=== PATIENT | male | born 1960 | race Caucasian/White ===

== ENCOUNTER 2017-04-19 09:07 | Inpatient (IN) | payer OTHER ==
[2017-04-06 15:16] VITALS: BMI 33.0
--- NOTE | 2017-04-06 15:48 | PAT Medication Instructions ---
Service Date Apr 06, 2017. Current Home Medication List Budesonide/Formoterol Fumarate (Symbicort 160/4.5 Inhaler), 2 PUFFS INH BID Escitalopram Oxalate (Lexapro), 5 MG PO HS Esomeprazole Magnesium (Nexium), 20 MG PO HS Gabapentin (Neurontin), 300 MG PO TID Glatiramer Acetate (Copaxone), 1 DOSE INJ 3XWK Ipratropium-Albuterol (Duoneb), 1 TREATMENT INH Q4H Levocetirizine Dihydrochloride (Xyzal), 1 TAB PO HS Ropinirole (Requip), 3 MG PO HS Tamsulosin HCl (Tamsulosin HCl), 2 CAP PO HS Tramadol (Ultram), 50-100 MG PO Q8H PRN for Pain Zolpidem Tartrate (Ambien), 10 MG PO HS PRN for Insomnia Medication Instructions For Your Scheduled Surgery - Continue as directed: Glatiramer Acetate (Copaxone), 1 DOSE INJ 3XWK (*bring from home*) - Take the following medications the morning of surgery with a sip of water: Gabapentin (Neurontin), 300 MG PO TID Budesonide/Formoterol Fumarate (Symbicort 160/4.5 Inhaler), 2 PUFFS INH BID Tramadol (Ultram), 50-100 MG PO Q8H PRN for Pain (may take if needed up to 4 hours prior to surgery) Ipratropium-Albuterol (Duoneb), 1 TREATMENT INH Q4H - Take the following medications as scheduled the evening before surgery: Gabapentin (Neurontin), 300 MG PO TID Zolpidem Tartrate (Ambien), 10 MG PO HS PRN for Insomnia Levocetirizine Dihydrochloride (Xyzal), 1 TAB PO HS Escitalopram Oxalate (Lexapro), 5 MG PO HS Esomeprazole Magnesium (Nexium), 20 MG PO HS Budesonide/Formoterol Fumarate (Symbicort 160/4.5 Inhaler), 2 PUFFS INH BID Tramadol (Ultram), 50-100 MG PO Q8H PRN for Pain Ipratropium-Albuterol (Duoneb), 1 TREATMENT INH Q4H Tamsulosin HCl (Tamsulosin HCl), 2 CAP PO HS - Do not take the following medications the evening before surgery: Ropinirole (Requip), 3 MG PO HS If you have any questions please call us at [phone] or [phone] or [phone]
[2017-04-06 16:46] LABS: BUN/CREATININE RATIO 11.5 (10-20); CALCIUM 9.3 mg/dl (8.5-10.1); CREATININE 1.1 mg/dl (0.60-1.40); POTASSIUM 3.8 mmol/L (3.5-5.1)
[2017-04-06 16:54] LABS: BASO % 0.3 %; BASO ABS # 0.02 K/uL (0-0.2); COMPLETE YES; EOS % 1.4 %; HEMATOCRIT 42.1 % (42-52); IG% 0.3 %; LYMPH ABS # 1.95 K/uL (1.2-3.4); MEAN CELL VOLUME 97.9 fL (80-100); MEAN CORPUSCULAR HEMOGLOBIN 33.5 pg (25-34); MEAN CORPUSCULAR HGB CONC 34.2 g/dl (32-36); MEAN PLATELET VOLUME 10.4 fL (7.4-10.4); MONO % 9.8 %; NEUT % 63.2 %; PLATELET COUNT 292 K/uL (130-400); WHITE BLOOD COUNT 7.79 K/uL (4.8-10.8)
[~2017-04-19] VITALS: Ht 167.6 cm; Wt 89.5 kg
[2017-04-19] VITALS (11 sets, daily range): BP systolic 93–176; BP diastolic 60–112; PULSE 86–105; TEMP 36.5–37.5; O2SAT 90–99; Ht 167.6 cm; Wt 89.5 kg
[~2017-04-19 09:07] MED LIST: ESCI1TAB6 PO; ESOM20CA PO; FENTANYL CITRATE INJ 50 MCG/1 ML 2 ML VIAL ONE; FLM4 PO; GABA-113 PO; GLAT1INJ INJ; IPRASOL4 INH; LACTATED RINGER'S 1000ML 1,000 ML IV SCH; LEVO-371 PO; LIDOCAINE HCL 2% 2 ML VIAL (20MG/ML) ONE; MIDAZOLAM HCL 1 MG/ML 2ML VIAL ONE; PROPOFOL IV EMULSION 10 MG/ML 20 ML VIAL IV ONE; ROCURONIUM BROMIDE 10 MG/ML 5 ML VIAL ONE; ROPI3TAB PO; SYMIN160 INH; TRAM-10 PO; ZOLP10TA PO
[2017-04-19] MEDS ORDERED: CHOL1000 PO (09:35)
[2017-04-19] MEDS ORDERED: HYDR-4079 PO (09:41)
[2017-04-19] MEDS ORDERED: SODIUM CHLORIDE 0.9% PF 50 ML VIAL ONE (09:54)
[2017-04-19] MEDS ORDERED: BUPIVACAINE LIPOSOME 1/3% 266 MG/20 ML VIAL INFIL ONE (09:54)
--- NOTE | 2017-04-19 10:00 | History & Physical Bridge Note ---
H&P Re-Evaluation Bridge Note: I have examined the patient, reviewed the History & Physical and in the interval since the performance of the History & Physical I have noted the following changes of clinical significance: No changes noted
[2017-04-19] MEDS ORDERED: FENTANYL CITRATE INJ 50 MCG/1 ML 2 ML VIAL ONE ×3 (10:39→14:59)
[2017-04-19] MEDS ORDERED: KETAMINE HCL INJ 50 MG/ML 10 ML VIAL ONE (10:46)
[2017-04-19] MEDS ORDERED: HYDROmorphone INJ 2 MG/ML SYR/VIAL IV PRN (11:00)
[2017-04-19] MEDS ORDERED: ONDANSETRON INJ 2 MG/ML 2 ML VIAL IV PRN ×2 (11:00→16:15)
[2017-04-19] MEDS ORDERED: EpHEDrine SULFATE INJ 50 MG/ML AMP IV PRN (11:00)
[2017-04-19] MEDS ORDERED: PHENYLEPHRINE 100MCG/ML 5ML SYR IV PRN (11:00)
[2017-04-19] MEDS ORDERED: ATROPINE SULFATE 0.1 MG/ML 5ML SYR IV PRN (11:00)
[2017-04-19] MEDS ORDERED: CLINDAMYCIN PHOS 150 MG/ML 2 ML VIAL ONE (11:49)
[2017-04-19] MEDS ORDERED: ALBUMIN HUMAN 5% 12.5 GM/250 ML VIAL IV ONE (12:18)
[2017-04-19] MEDS ORDERED: PHENYLEPHRINE HCL INJ 10 MG/ML VIAL ONE ×4 (12:41→15:32)
[2017-04-19] MEDS ORDERED: ROCURONIUM BROMIDE 10 MG/ML 5 ML VIAL ONE ×2 (12:41→15:10)
[2017-04-19] MEDS ORDERED: PHENYLEPHRINE 100MCG/ML 5ML SYR ONE ×4 (12:41→14:43)
[2017-04-19] MEDS ORDERED: ESMOLOL HCL 10 MG/ML 10 ML VIAL ONE (13:10)
[2017-04-19] MEDS ORDERED: ALBUT/IPRATROP 3MG/0.5MG NEB 3 ML VIAL INH PRN (16:15)
[2017-04-19] MEDS ORDERED: MoRPHine SULFATE 2 MG/ML CARP IV PRN (16:15)
[2017-04-19] MEDS ORDERED: HYDROmorphone INJ 2 MG/ML SYR/VIAL ONE (16:40)
--- NOTE | 2017-04-19 16:43 | DIAGNOSTIC IMAGING REPORT ---
CHEST ONE VIEW PORTABLE CLINICAL HISTORY: LLL postoperative evaluation COMPARISON STUDY: 01/20/2017 FINDINGS: Interval left-sided thoracotomy. Consolidative change left base. Left-sided chest tube. No significant residual pneumothorax. Central catheter and left subclavian vein. Potential small pneumomediastinum. Atelectasis right base. Trace amount of subcutaneous emphysematous change. IMPRESSION: 1. Postoperative changes left hemithorax. 2. Left sided chest tube in good position. 3. Bibasilar atelectasis. 4. Small pneumomediastinum with mild subcutaneous emphysematous change. The above report was generated using voice recognition software. It may contain grammatical, syntax or spelling errors. Electronically signed by: Konrad Luevano M.D. 04/19/2017 4:41 PM Dictated Date/Time: 04/19/2017 4:39 PM
[2017-04-19] MEDS ORDERED: HYDROmorphone INJ 1 MG/ML SYR ONE (17:09)
--- NOTE | 2017-04-19 18:04 | Anesthesiology Progress Note ---
Anesthesia Post Op Note Date & Time Apr 19, 2017 at 18:04 Vital Signs Vital Signs Past 12 Hours Date Time Temp Pulse Resp B/P (MAP) Pulse Ox O2 Delivery O2 Flow Rate FiO2 04/19/17 17:44 36.5 04/19/17 17:41 123/78 04/19/17 17:38 98 14 98 04/19/17 17:38 98 14 04/19/17 17:36 115/81 04/19/17 17:33 92 12 04/19/17 17:33 92 12 99 04/19/17 17:31 119/75 04/19/17 17:28 99 19 98 04/19/17 17:28 99 19 04/19/17 17:26 122/71 04/19/17 17:23 98 20 04/19/17 17:23 98 20 96 04/19/17 17:22 98 18 96 04/19/17 17:22 98 18 04/19/17 17:21 126/75 04/19/17 17:17 101 15 95 04/19/17 17:17 100 15 04/19/17 17:16 118/73 04/19/17 17:12 101 22 04/19/17 17:12 102 22 95 04/19/17 17:11 106/71 04/19/17 17:07 101 16 95 04/19/17 17:07 101 16 04/19/17 17:06 112/72 04/19/17 17:02 96 19 04/19/17 17:02 96 19 95 04/19/17 17:01 104/63 04/19/17 17:00 99 19 95 04/19/17 17:00 99 19 04/19/17 16:56 115/70 04/19/17 16:55 98 20 04/19/17 16:55 99 20 96 04/19/17 16:51 120/65 04/19/17 16:50 101 20 96 04/19/17 16:50 101 20 04/19/17 16:47 114/73 04/19/17 16:45 102 21 94 04/19/17 16:45 102 21 04/19/17 16:42 88/61 04/19/17 16:40 100 19 04/19/17 16:40 99 19 95 04/19/17 16:37 97/60 04/19/17 16:35 98 19 97 04/19/17 16:35 99 19 04/19/17 16:30 95 23 98 04/19/17 16:30 95 23 04/19/17 16:26 122/77 04/19/17 16:25 96 21 04/19/17 16:25 36.1 96 18 122/77 100 Mask 10 04/19/17 16:25 96 21 100 04/19/17 10:35 86 16 99 Mask 10.0 04/19/17 09:43 36.8 92 20 176/112 98 Room Air Notes Mental Status: alert / awake / arousable, participated in evaluation Pt Amnestic to Procedure: Yes Nausea / Vomiting: adequately controlled Pain: adequately controlled Airway Patency, RR, SpO2: stable & adequate BP & HR: stable & adequate Hydration State: stable & adequate Anesthetic Complications: no major complications apparent
[2017-04-19] MEDS: D5W AND 1/2NSS 1,000 ML IV SCH (18:09)
[2017-04-19] MEDS: ACETAMINOPHEN IV 1,000 MG in EMPTY BAG 0 ML IV SCH (20:09)
[2017-04-19] MEDS: KETOROLAC TROMETHAMINE 30 MG/ML VIAL IV. SCH (20:09)
[2017-04-19] MEDS ORDERED: NURSING VERBAL MED ORDER ONE (20:15)
[2017-04-19] MEDS: MoRPHine SULFATE 2 MG/ML CARP IV PRN (20:50)
[2017-04-19] MEDS: NICOTINE 21 MG/24 HR TDSY EXT SCH (20:52)
[2017-04-19] MEDS: CLINDAMYCIN IV 900 MG in DEXTROSE 5% 100ML 100 ML IV SCH (20:53)
[2017-04-19] MEDS: ROPINIROLE HCL 1 MG TAB PO SCH (20:55)
[2017-04-19] MEDS: GABAPENTIN 300 MG CAP PO SCH (20:55)
[2017-04-19] MEDS: DOCUSATE SODIUM 100 MG CAP PO SCH (20:56)
[2017-04-19] MEDS: ESCITALOPRAM OXALATE 10 MG TAB PO SCH (20:56)
[2017-04-19] MEDS: TAMSULOSIN HCL 0.4 MG CAP PO SCH (20:56)
[2017-04-19] MEDS: METOCLOPRAMIDE HCL INJ 5 MG/ML 2 ML VIAL IV. SCH (21:44)
[2017-04-19] MEDS: BUDESONIDE/FORMOTEROL FUMARATE 160/4.5 60 PUFFS/INHALER INH SCH (22:27)
--- NOTE | 2017-04-19 23:32 | OPERATIVE REPORT ---
DATE OF OPERATION: 04/19/2017 PREOPERATIVE DIAGNOSIS: Non-small cell lung carcinoma, left lower lobe. POSTOPERATIVE DIAGNOSIS: Same. PROCEDURE: Thoracoscopic left lower lobectomy with mediastinal lymphadenectomy. SURGEON: Dr. Clark. HOSPITAL LABORATORY TECHNICIAN: ZOEY Marrufo. ANESTHESIA: General anesthesia, endotracheal intubation with a double lumen tube. SPECIFICS OF PROCEDURE AND FINDINGS: This a very nice 57-year-old male, who continues to smoke cigarettes, found to have a non-small cell lung carcinoma of the left lower lobe. He was worked up by Dr. Fabrice Gregg from [place], lung specialist, and felt to be a candidate for a resection. On 04/19/2017, the patient was brought to the operating room at [facility] and underwent an uncomplicated thoracoscopic left lower lobectomy with a mediastinal lymphadenectomy. He lost very little blood. He is extubated in the room. He tolerated it quite well. PROCEDURE: The patient brought to the operating room, laid in supine position. General anesthesia induced and endotracheal intubation was performed. This was done with a double lumen tube. Arterial line was also placed in his left radial artery. It is important to note this patient was a very difficult IV access. We put an IV in his right distal saphenous and then two smaller upper extremity IVs.. The patient was then placed in the right lateral decubitus position, his left chest was prepped and draped in the usual sterile fashion. Appropriate timeout was called and prophylactic antibiotics were given. A 5-mm port was placed, 1 interspace and a bit anterior to the tip of the scapula and carbon dioxide insufflated. The 5-mm scope was placed and it could be seen that the lung had been isolated quite nicely. However, there were adhesions of the superior segment of the lower lobe to the chest wall. This did not appear to be the area of his cancer on CT scan. It appeared to me the patient had atelectasis with post-obstructive pneumonitis and I went ahead and placed another port at about the 7th interspace anteriorly and then a working channel about 3 cm in length at the fourth interspace, anterior to the latissimus dorsi muscle. The Harmonic scalpel was used to take down the adhesions. We did get into some bleeding, but the Aquamantys cycle consultant was used to control this nicely. After taking these down, I then some of the fissure, but it was very difficult. The inferior pulmonary ligament was taken down. The level 9 node really was not seen, but a level 8 node was sent off. I then freed up the pleura all the way up to the aortopulmonary window area and biopsied the level 10 node. I then easily dissected out the inferior pulmonary vein. After identifying the superior pulmonary vein, in particular the lingual vein, I went ahead and took the inferior pulmonary vein with an Endo-ULI stapler. On pulling this up, it could be seen that there were significant lymph nodes here. I dissected this out further and identified the bronchus. I then allowed the lung to fall back in its natural position and I the 2 fissures and then we the 2 lobes with some traction and then went down and took down the pleura over the artery. I then was able to complete the fissure anteriorly and this helped greatly. The lingual bronchus as well as the lingual artery and vein were identified. I dissected out the artery and I had to go a bit distal and fire Endo-ULI stapler. This freed it up, so I could get to the bronchus quite nicely. But I still had some issues getting this freed up and I fired the stapler across the superior segment of the lower lobe and this freed it up nicely. I then dissected out the artery and I was a bit concerned the cancer may be growing into this. We meticulously dissected this out and I was able to separate the posterior fissure with an Endo-ULI stapler. This went to a soft portion. After this, I was able to dissect out the vein and the artery and the bronchus a bit better. It could be seen that I was going to be able to fire a stapler across the main pulmonary artery and more proximal to my original arterial staple line. Care was taken to avoid compromising the flow to the lingual artery. Endo-ULI stapler was fired. This freed up the bronchus quite nicely and I took this just distal to the takeoff of the lingual bronchus. The specimen was delivered off the field in a bag to prevent any seeding. Chest was irrigated out. There was one area that was leaking from posteriorly and I fired an Endo-ULI stapler across this from the upper lobe. The lung expanded quite nicely. We really got into very little blood loss. I did dissect out a level 7 node. I saw really no significant bleeding and our blood loss was negligible. He really was not leaking much at the end of the case. A 24-Kosovan chest tube was placed in the anterior thoracoscopy port and directed towards the apex. It was sutured in place with heavy silk suture. We assessed for further leaking, really had very little. Saline was suctioned out from the chest tube. 0 Vicryl was used to close the muscle areas of all 3 ports and 4-0 Monocryl was used in running subcuticular fashion to approximate the wound edges. He tolerated it well and was extubated in the room. I attest to the content of the Intraoperative Record and any orders documented therein. Any exception s are noted below.
[2017-04-20] VITALS (11 sets, daily range): BP systolic 104–138; BP diastolic 70–82; PULSE 82–109; TEMP 36.9–37.3; O2SAT 93–97
[2017-04-20] MEDS: OXYCODONE HCL IR 5 MG TAB (IMMEDIATE RELEASE) PO PRN ×5 (00:15→19:33)
[2017-04-20] MEDS: CLINDAMYCIN IV 900 MG in DEXTROSE 5% 100ML 100 ML IV SCH (01:43)
[2017-04-20] MEDS: D5W AND 1/2NSS 1,000 ML IV SCH (01:44)
[2017-04-20] MEDS: KETOROLAC TROMETHAMINE 30 MG/ML VIAL IV. SCH ×3 (04:09→19:32)
[2017-04-20] MEDS: ACETAMINOPHEN IV 1,000 MG in EMPTY BAG 0 ML IV SCH ×3 (04:09→19:32)
[2017-04-20] MEDS: METOCLOPRAMIDE HCL INJ 5 MG/ML 2 ML VIAL IV. SCH ×2 (05:58→13:37)
[2017-04-20 06:57] LABS: BASO % 0.1 %; BASO ABS # 0.01 K/uL (0-0.2); COMPLETE YES; HEMATOCRIT 35.5 % (42-52); IG% 0.3 %; LYMPH ABS # 1.65 K/uL (1.2-3.4); MEAN CELL VOLUME 98.9 fL (80-100); MEAN CORPUSCULAR HEMOGLOBIN 31.5 pg (25-34); MEAN CORPUSCULAR HGB CONC 31.8 g/dl (32-36); MEAN PLATELET VOLUME 10.3 fL (7.4-10.4); MONO % 7.6 %; PLATELET COUNT 251 K/uL (130-400); RED BLOOD COUNT 3.59 M/uL (4.7-6.1); WHITE BLOOD COUNT 14.99 K/uL (4.8-10.8)
[2017-04-20 06:59] LABS: PROTHROMBIN TIME (PATIENT) 11.1 SECONDS (9.0-12.0)
--- NOTE | 2017-04-20 07:04 | DIAGNOSTIC IMAGING REPORT ---
CHEST ONE VIEW PORTABLE HISTORY: Postop. Left lower lobectomy. COMPARISON: Chest 04/19/2017. FINDINGS: Left-sided chest tube terminates near the left lung apex. Trace left pleural effusion and left basilar linear densities remain unchanged. Left chest wall subcutaneous emphysema persists. The heart remains mildly enlarged. Improvement in the right midlung zone atelectasis. Small amount of pneumomediastinum remains unchanged. IMPRESSION: No change in the small amount of pneumomediastinum. A left chest tube terminates near the left lung apex. Electronically signed by: Reinier Sagastume M.D. 04/20/2017 7:03 AM Dictated Date/Time: 04/20/2017 7:02 AM
[2017-04-20 07:32] LABS: BUN/CREATININE RATIO 13.1 (10-20); CALCIUM 8.2 mg/dl (8.5-10.1); POTASSIUM 3.5 mmol/L (3.5-5.1)
[2017-04-20] MEDS: ENOXAPARIN 40 MG/0.4 ML SYR SQ SCH (09:08)
[2017-04-20] MEDS: DOCUSATE SODIUM 100 MG CAP PO SCH ×2 (09:09→21:17)
[2017-04-20] MEDS: PANTOprazole SOD 40 MG TAB PO SCH (09:09)
[2017-04-20] MEDS: CHOLECALCIFEROL 1000 INTER.UNIT TAB PO SCH (09:09)
[2017-04-20] MEDS: ROPINIROLE HCL 1 MG TAB PO SCH ×3 (09:10→21:17)
[2017-04-20] MEDS: CILOSTAZOL 100 MG TAB PO SCH ×2 (09:10→21:17)
[2017-04-20] MEDS: NICOTINE 21 MG/24 HR TDSY EXT SCH (09:11)
[2017-04-20] MEDS: BUDESONIDE/FORMOTEROL FUMARATE 160/4.5 60 PUFFS/INHALER INH SCH ×2 (09:11→20:16)
[2017-04-20] MEDS: GABAPENTIN 300 MG CAP PO SCH ×3 (09:13→21:17)
--- NOTE | 2017-04-20 09:22 | SURGERY PROGRESS NOTE ---
DATE: 04/20/2017 Mr. Fonseca is seen today on 04/20/2017. He is 1 day status post thoracoscopic left lower lobectomy with mediastinal lymphadenectomy. Mr. Fonseca looks great. He is sitting up in a chair. He is on room air. He has just finished eating breakfast. Everything looked very well yesterday. I was quite happy with him from a surgical standpoint. He has had a quiet night. He is afebrile. His saturations are 96% on room air. His vital signs are stable. He has some rhonchi on the left, but he is been moving air well without wheezing. He is on bronchodilators. He has a regular rate and rhythm of his heart. Sequential compression devices are in place. His left toe is extremely tender and cyanotic. 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 He apparently embolized cholesterol crystals at that time. He has a bounding posterior tibialis pulse on the left. His lab work looks quite good. His white count is 14,990, hemoglobin is 11.3 and his platelet count is stable at 251,000. His sodium is 138, potassium 3.5, chloride 105, BUN and creatinine are 13 and 1.0 respectively. His x-ray looks quite good with no evidence of a pneumothorax. His chest tube has very little in the way of drainage. He does have a very small air leak. His lung is completely expanded. ASSESSMENT AND PLAN: Postoperative day #1 status post thoracoscopic left lower lobectomy with mediastinal lymphadenectomy. His pain control was very good. He looks very good. I am going to start Pletal on him in hopes that it will help his left hallux. In the meantime, we are going to get him up walking. I have discussed this with his family and hopefully we will be able to send him home in about 48 hours. DARIN
[2017-04-20] MEDS: MoRPHine SULFATE 2 MG/ML CARP IV PRN ×3 (12:17→22:09)
[2017-04-20] MEDS ORDERED: NURSING VERBAL MED ORDER ONE (19:30)
[2017-04-20] MEDS: ESCITALOPRAM OXALATE 10 MG TAB PO SCH (21:17)
[2017-04-20] MEDS: TAMSULOSIN HCL 0.4 MG CAP PO SCH (21:17)
[2017-04-21] MEDS: MoRPHine SULFATE 2 MG/ML CARP IV PRN ×2 (00:25→23:45)
[2017-04-21 03:01] VITALS: BP 127/78; PULSE 110; TEMP 37.1; O2SAT 92
[2017-04-21] MEDS: ACETAMINOPHEN IV 1,000 MG in EMPTY BAG 0 ML IV SCH (03:38)
[2017-04-21] MEDS: KETOROLAC TROMETHAMINE 30 MG/ML VIAL IV. SCH ×2 (03:39→11:19)
[2017-04-21] MEDS ORDERED: BISACODYL 10 MG SUPP PR PRN (07:30)
[2017-04-21] MEDS ORDERED: SOD PHOSPHATE/SOD BIPHOSPHATE ENEMA 132 ML BTL PR PRN (07:30)
[2017-04-21] MEDS ORDERED: MAGNESIUM SULFATE 1GM / D5W 1 GM in PREMIXED IN D5W 100 ML IV ONE (07:45)
[2017-04-21] MEDS: OXYCODONE HCL IR 5 MG TAB (IMMEDIATE RELEASE) PO PRN ×3 (07:52→18:48)
[2017-04-21] MEDS ORDERED: FUROSEMIDE INJ 10 MG in SYRINGE 0 ML IV ONE (08:00)
--- NOTE | 2017-04-21 08:11 | SURGERY PROGRESS NOTE ---
DATE: 04/21/2017 Mr. Fonseca was seen today on 04/21/2017 on postop day 2 status post thoracoscopic left lower lobectomy for a nonsmall cell lung carcinoma. He has done fairly well. He is walking well. His biggest complaint is pain in his left hallux which apparently suffered some embolic cholesterol crystals. He is ambulating in the hallway. Eating well. He has not moved his bowels as of yet, we are going to give him MiraLax today. He has got some mild wheezing. Overall, I am quite happy with him. He has a very tiny intermittent air leak, in fact may not have one at all today. I am going to leave his chest tube in 1 more day, pull it out tomorrow, let him go home if his x-ray looks good in the morning.
[2017-04-21] MEDS: NICOTINE 21 MG/24 HR TDSY EXT SCH (08:23)
[2017-04-21] MEDS: BUDESONIDE/FORMOTEROL FUMARATE 160/4.5 60 PUFFS/INHALER INH SCH ×2 (08:24→21:03)
[2017-04-21] MEDS: DOCUSATE SODIUM 100 MG CAP PO SCH ×2 (08:24→21:04)
[2017-04-21] MEDS: ROPINIROLE HCL 1 MG TAB PO SCH ×3 (08:25→21:04)
[2017-04-21] MEDS: CILOSTAZOL 100 MG TAB PO SCH ×2 (08:26→21:05)
[2017-04-21] MEDS: ENOXAPARIN 40 MG/0.4 ML SYR SQ SCH (08:26)
[2017-04-21] MEDS: CHOLECALCIFEROL 1000 INTER.UNIT TAB PO SCH (08:26)
[2017-04-21] MEDS: GABAPENTIN 300 MG CAP PO SCH ×3 (08:27→21:04)
[2017-04-21] MEDS: PANTOprazole SOD 40 MG TAB PO SCH (08:27)
[2017-04-21] MEDS: POLYETHYLENE (MIRALAX) 17 GM PACK PO SCH (08:28)
[2017-04-21] MEDS: POTASSIUM CHLORIDE PWD 20 MEQ PACK PO SCH ×2 (08:29→21:00)
[2017-04-21 08:36] VITALS: BP 117/73; PULSE 120; TEMP 36.8; O2SAT 95
[2017-04-21 08:50] VITALS: O2SAT 95
[2017-04-21] MEDS: ACETAMINOPHEN 325 MG TAB PO SCH ×3 (09:58→21:04)
[2017-04-21 11:57] VITALS: BP 100/64; PULSE 114; TEMP 36.9; O2SAT 96
[2017-04-21 12:06] LABS: BASO % 0.2 %; BASO ABS # 0.02 K/uL (0-0.2); COMPLETE YES; EOS % 0.2 %; HEMATOCRIT 34.6 % (42-52); IG% 0.5 %; LYMPH % 13.8 %; LYMPH ABS # 1.52 K/uL (1.2-3.4); MEAN CELL VOLUME 98.9 fL (80-100); MEAN CORPUSCULAR HEMOGLOBIN 33.1 pg (25-34); MEAN CORPUSCULAR HGB CONC 33.5 g/dl (32-36); MEAN PLATELET VOLUME 10.6 fL (7.4-10.4); MONO % 7.5 %; NEUT % 77.8 %; PLATELET COUNT 233 K/uL (130-400); WHITE BLOOD COUNT 11.04 K/uL (4.8-10.8)
[2017-04-21 12:25] LABS: BUN/CREATININE RATIO 9.6 (10-20); CALCIUM 8.5 mg/dl (8.5-10.1); CREATININE 1.1 mg/dl (0.60-1.40); POTASSIUM 3.6 mmol/L (3.5-5.1)
[2017-04-21] MEDS ORDERED: PNEUMOCOCCAL ADMINISTRATION CHARGE ONE (14:00)
[2017-04-21] MEDS ORDERED: PNEUMOCOCCAL POLYSACCHARIDES 25 MCG/0.5 ML VIAL/SYR IM. ONE (14:00)
[2017-04-21 15:18] VITALS: BP 113/70; PULSE 104; TEMP 36.4; O2SAT 97
[2017-04-21] MEDS: ESCITALOPRAM OXALATE 10 MG TAB PO SCH (21:05)
[2017-04-21] MEDS: TAMSULOSIN HCL 0.4 MG CAP PO SCH (21:05)
[2017-04-21 23:20] VITALS: BP 114/73; PULSE 108; TEMP 36.9; O2SAT 96
[2017-04-22] MEDS: ACETAMINOPHEN 325 MG TAB PO SCH ×2 (03:04→09:26)
[2017-04-22 07:09] VITALS: BP 133/87; PULSE 102; TEMP 37; O2SAT 96
[2017-04-22 07:30] VITALS: O2SAT 96
--- NOTE | 2017-04-22 07:58 | DIAGNOSTIC IMAGING REPORT ---
CHEST ONE VIEW PORTABLE HISTORY: lung resection COMPARISON: Chest 04/20/2017. FINDINGS: Left-sided chest tube terminates in the left lung apex. This remains unchanged. Hazy airspace opacities within the left lower lung zone are also stable. Suspect trace bilateral pleural effusions. Left chest wall subcutaneous emphysema. No definite pneumothorax. The heart is stable in size. The right lung is clear. Trace pneumomediastinum has improved. IMPRESSION: Trace pneumomediastinum has improved. Left chest tube remains unchanged in position. No definite pneumothorax. Electronically signed by: Reinier Sagastume M.D. 04/22/2017 7:56 AM Dictated Date/Time: 04/22/2017 7:55 AM
[2017-04-22] MEDS ORDERED: HYDR-4079 PO (08:23)
[2017-04-22] MEDS ORDERED: CLC100 PO (08:24)
[2017-04-22] MEDS ORDERED: PLT100 PO (08:24)
--- NOTE | 2017-04-22 08:27 | Discharge Instructions ---
Discharge Instructions Date of Service Apr 22, 2017. Admission Reason for Admission: Squamous Cell Lung Cancer Discharge Discharge Diagnosis / Problem: Squamous Cell Lung Cancer Discharge Goals Goal(s): Improve disease control, Learn about illness Activity Recommendations Activity Limitations: as noted below Lifting Limitations: none . Instructions / Follow-Up Instructions / Follow-Up 1. You may remove dressing in 3 days and shower thereafter. No tub baths. 2. Do not fly or drive until cleared to so so by Dr. Clark. 3. Office appointment with Dr. Clark in approximately 10 days. Office will call you [facility] date and time of appointment. Go to hospital 1 hour before appointment to get a chest x-ray. Current Hospital Diet Patient's current hospital diet: Regular Diet Discharge Diet Recommended Diet: Regular Diet Procedures Procedures Performed: Video Assisted Left Thoracoscopy, Left Lower Lobectomy and Mediastinal Lymphadenectomy Pending Studies Studies pending at discharge: no Medical Emergencies . Who to Call and When: Medical Emergencies: If at any time you feel your situation is an emergency, please call 911 immediately. . Non-Emergent Contact Non-Emergency issues call your: Surgeon Call Non-Emergent contact if: you have a fever, your pain is not controlled, wound has increased drainage . "Provider Documentation" section prepared by Juan Villarreal. . VTE Core Measure Inpt VTE Proph given/why not?: Enoxaparin (Lovenox)SQ
--- NOTE | 2017-04-22 08:31 | Discharge Summary ---
Discharge Summary Date of Service Apr 22, 2017. Discharge Summary Thoracic surgery discharge summary: Date of admission: 04/19/2017 Date of discharge: 04/22/2017 Discharge diagnosis: Non-small cell lung carcinoma left lower lobe Hospital course: This is a 57-year-old active smoker who was found to have a non-small cell lung carcinoma left lower lobe. He was worked up by Dr. Beau Gregg from [place] lung specialists. This felt that he was a surgical candidate. On 04/19 I took the patient operating room and did an uncomplicated thoracoscopic left lower lobectomy with mediastinal lymphadenectomy. The patient did very well with very little blood loss. He had a very tiny air leak on postop day 2 so I kept him an extra day. He had no air leak on postop day 3 removed his chest tube. He was a bleeding in the hallway. His pain was well controlled. He was on room air. He was quite eager to go home on postop day 3. His incisions were clean and his x-ray looked quite good. He was discharged home and we will follow him up in the office in about 10 days with an x-ray. From a surgical standpoint, Mr. Fonseca did quite well. I discussed his case in detail with Dr. Glynn Ervin from pathology on 817. His lymph nodes and margins are negative however, this is a fairly large tumor probably over 5 cm. There was also inflammation involved. We are going to present him at cancer conference in the upcoming weeks. I will see him back in the office but the patient has limited resources and lives quite far from [facility]. He will be getting his oncologic follow-up in [place].
[2017-04-22] MEDS: BUDESONIDE/FORMOTEROL FUMARATE 160/4.5 60 PUFFS/INHALER INH SCH (08:42)
[2017-04-22] MEDS: NICOTINE 21 MG/24 HR TDSY EXT SCH (08:42)
--- NOTE | 2017-04-22 08:42 | DIAGNOSTIC IMAGING REPORT ---
SINGLE VIEW CHEST CLINICAL HISTORY: Status post lung resection. Chest tube removal. FINDINGS: An AP, portable, upright chest radiograph is compared to study dated 04/22/2017 and correlated with chest CT dated 01/20/2017. The examination is degraded by portable technique and patient rotation. The left-sided chest tube has been removed. The cardiomediastinal silhouette is unremarkable. There is atherosclerotic calcification of the thoracic aorta. Emphysema is noted. There is volume loss in the left lung consistent with left lower lobe resection. Airspace opacities in the left mid to lower lung are similar to previous. Pleural fluid is seen at the left lung base. The right lung appears clear. No pneumothorax is seen. The skeletal structures are osteopenic. Postoperative change is noted in the left-sided ribs. Subcutaneous emphysema is seen along the left chest wall. IMPRESSION: 1. The left-sided chest tube has been removed. No pneumothorax is clearly seen. 2. Emphysema and postoperative change from left lower lobe pulmonary resection. 3. Airspace opacities in the left lower lung are similar to previous and there is pleural fluid at the left lung base. Electronically signed by: Geovany Philip M.D. 04/22/2017 8:40 AM Dictated Date/Time: 04/22/2017 8:38 AM
[2017-04-22] MEDS: POLYETHYLENE (MIRALAX) 17 GM PACK PO SCH (08:44)
[2017-04-22] MEDS: PANTOprazole SOD 40 MG TAB PO SCH (08:45)
[2017-04-22] MEDS: DOCUSATE SODIUM 100 MG CAP PO SCH (08:45)
[2017-04-22] MEDS: CILOSTAZOL 100 MG TAB PO SCH (08:45)
[2017-04-22] MEDS: GABAPENTIN 300 MG CAP PO SCH ×2 (08:45→13:17)
[2017-04-22] MEDS: CHOLECALCIFEROL 1000 INTER.UNIT TAB PO SCH (08:46)
[2017-04-22] MEDS: ROPINIROLE HCL 1 MG TAB PO SCH ×2 (08:46→13:17)
[2017-04-22] MEDS: POTASSIUM CHLORIDE PWD 20 MEQ PACK PO SCH (08:48)
[2017-04-22] MEDS: ENOXAPARIN 40 MG/0.4 ML SYR SQ SCH (08:50)
[2017-04-22] MEDS: OXYCODONE HCL IR 5 MG TAB (IMMEDIATE RELEASE) PO PRN ×2 (08:55→13:16)
[2017-04-22 12:02] VITALS: BP 133/87; PULSE 102; TEMP 37; O2SAT 96
== END 2017-04-22 14:05 | disposition home or self-care (01) | DRG 165 ==
LOC: C.ACU 09:07 → C.MSW 10:05 → ENRESERV 17:21
PROVIDERS: ADMIT Surgery; ATTEND Surgery
PROC: 0BTJ4ZZ Resection of Left Lower Lung Lobe, Percutaneous Endoscopic Approach (ICD-10-PCS; principal; 2017-04-19 11:15)
PROC: 07T74ZZ Resection of Thorax Lymphatic, Percutaneous Endoscopic Approach (ICD-10-PCS; principal; 2017-04-19 11:15)
DX: C34.32 Malignant neoplasm of lower lobe, left bronchus or lung (principal); E66.9 Obesity, unspecified; G47.33 Obstructive sleep apnea (adult) (pediatric); F17.210 Nicotine dependence, cigarettes, uncomplicated; M54.2 Cervicalgia; M54.5 Low back pain; K21.9 Gastro-esophageal reflux disease without esophagitis; B19.20 Unspecified viral hepatitis C without hepatic coma; G47.00 Insomnia, unspecified; J32.9 Chronic sinusitis, unspecified; G25.81 Restless legs syndrome; J44.9 Chronic obstructive pulmonary disease, unspecified; F41.9 Anxiety disorder, unspecified; F32.9 Major depressive disorder, single episode, unspecified; R20.0 Anesthesia of skin; G43.909 Migraine, unspecified, not intractable, without status migrainosus; Z79.51 Long term (current) use of inhaled steroids; Z79.899 Other long term (current) drug therapy; Z79.891 Long term (current) use of opiate analgesic; Z68.31 Body mass index [BMI] 31.0-31.9, adult; Z23 Encounter for immunization

== ENCOUNTER → 2017-05-03 | Outpatient (CLI) | payer OTHER ==
[~2017-05-03] MED LIST changes: +CHOL1000 PO; +CLC100 PO; -FENTANYL CITRATE INJ 50 MCG/1 ML 2 ML VIAL ONE; +HYDR-4079 PO; -LACTATED RINGER'S 1000ML 1,000 ML IV SCH; -LIDOCAINE HCL 2% 2 ML VIAL (20MG/ML) ONE; -MIDAZOLAM HCL 1 MG/ML 2ML VIAL ONE; +PLT100 PO; -PROPOFOL IV EMULSION 10 MG/ML 20 ML VIAL IV ONE; -ROCURONIUM BROMIDE 10 MG/ML 5 ML VIAL ONE
--- NOTE | 2017-05-03 08:58 | DIAGNOSTIC IMAGING REPORT ---
CHEST 2 VIEWS ROUTINE CLINICAL HISTORY: 57 years-old Male presenting with acquired absence of the lung, left lower lobectomy 2 weeks ago due to lung cancer. TECHNIQUE: PA and lateral views of the chest were obtained. COMPARISON: 05/19/2017. FINDINGS: Atherosclerosis of the aorta. Interval decrease in left basilar opacity and left pleural effusion with better delineation of the left heart border. Decreased overlying soft tissue emphysema along the inferior left chest wall. No new focal infiltrate. Right lung and pleural spaces clear. Osseous structures normal. Upper abdomen normal. IMPRESSION: 1. Evolving postsurgical changes of left lower lobectomy with decreased left basilar consolidation and effusion. Electronically signed by: Glynn Shook M.D. 05/03/2017 8:56 AM Dictated Date/Time: 05/03/2017 8:54 AM
== END | disposition home or self-care (01) ==
LOC: C.RAD 08:40
PROVIDERS: ATTEND Surgery
DX: Z90.2 Acquired absence of lung [part of] (principal)